=== PATIENT | male | born 1960 | race Caucasian/White ===

== ENCOUNTER 2020-12-07 18:10 | Emergency (ER) | payer MEDICARE, MEDICAID ==
[~2020-12-07] VITALS: Ht 172.7 cm; Wt 89.0 kg
[~2020-12-07 18:10] MED LIST: AZIT500T PO
--- NOTE | 2020-12-07 18:55 | NUR ---
Report from Yesy GRAMAJO
[2020-12-07 19:12] VITALS: BP 124/82
[2020-12-07] MEDS ORDERED: BACITRACIN ZINC OINT 500U/GM, 0.9 GM ONE (19:23)
[2020-12-07] MEDS ORDERED: DIPH,PERTUSS(ACELL),TET VAC/PF 0.5 ML IM-VACC ONE ×2 (19:44→20:00)
[2020-12-07] MEDS ORDERED: NEOSPORIN OINT. PKT 1 PACKET ONE (19:57)
== END 2020-12-07 21:48 | disposition home or self-care (01) ==
LOC: ED 18:40
DX: S02.2XXA Fracture of nasal bones, initial encounter for closed fracture (principal); S00.83XA Contusion of other part of head, initial encounter; S60.211A Contusion of right wrist, initial encounter; S80.02XA Contusion of left knee, initial encounter; M54.2 Cervicalgia; W17.89XA Other fall from one level to another, initial encounter; Y93.89 Activity, other specified; Y92.89 Other specified places as the place of occurrence of the external cause; Y99.8 Other external cause status
CPT/HCPCS: 70450; 70486; 72125; 90471; 90715; 99285